=== PATIENT | female | born 1980 | race Caucasian/White ===

== ENCOUNTER 2020-01-03 17:54 | Emergency (ER) | payer OTHER, SELFPAY ==
[~2020-01-03] VITALS: Ht 152.4 cm; Wt 72.6 kg
[2020-01-03 17:56] VITALS: BP 115/85; Ht 152.4 cm; Wt 72.6 kg
== END 2020-01-03 19:11 | disposition home or self-care (01) ==
LOC: ED 17:54
DX: U07.1 COVID-19 (principal)
CPT/HCPCS: U0003-CS